=== PATIENT | female | born 1960 | race African-American/Black ===

== ENCOUNTER 2017-03-08 10:30 | Emergency (ER) | payer MEDICAID ==
[~2017-03-08] VITALS: Ht 160 cm; Wt 45.0 kg
[~2017-03-08 10:30] MED LIST: ATIVAN
[2017-03-08] MEDS ORDERED: MORPHINE SULFATE 4 MG/ML CPJ (NOT FOR IM USE) IV STA (10:53)
[2017-03-08] MEDS ORDERED: SODIUM CHLORIDE 0.9% 1,000 ML IV ONE (10:53)
[2017-03-08] MEDS ORDERED: ONDANSETRON HCL 4MG/2ML VIAL IV STA (10:53)
[2017-03-08 11:49] LABS: BASOPHILS % 0.7 % (0.0-2.0); EOSINOPHILS % 1.8 % (0.0-5.0); HEMATOCRIT. 44.4 % (36.0-48.0); HEMOGLOBIN. 14.8 g/dL (12.0-16.0); LYMPHOCYTES % 21.2 % (20.0-50.0); MEAN CORPUSCULAR HEMOGLOBIN 32.8 pg (28.0-32.0); MEAN PLATELET VOLUME 8.2 fl (7.4-10.4); MONOCYTES % 9.2 % (2.0-8.0); NEUTROPHILS % 67.1 % (40.0-76.0); PLATELET 275 x1000/uL (130-400); RED BLOOD CELL COUNT 4.53 mill/uL (4.2-5.4)
[2017-03-08 11:58] LABS: D-DIMER 0.55 mg/L FEU (<0.50); PROTHROMBIN TIME 10.3 sec (9.4-11.6)
[2017-03-08 11:59] LABS: CLARITY URINE CLEAR (CLEAR); COLOR URINE YELLOW (YELLOW); GLUCOSE URINE NEGATIVE (NEGATIVE); KETONES URINE NEGATIVE (NEGATIVE); LEUKOCYTE ESTERASE URINE NEGATIVE (NEGATIVE); NITRITE URINE NEGATIVE (NEGATIVE); OCCULT BLOOD URINE NEGATIVE (NEGATIVE); PROTEIN URINE NEGATIVE (NEGATIVE); SPECIFIC GRAVITY URINE 1.009 (1.005-1.030); UROBILINOGEN URINE 0.2 E.U./dL (0.2-1.0)
[2017-03-08] MEDS ORDERED: SODIUM CHLORIDE 0.9% 10ML VIAL ONE ×2 (12:02→12:03)
[2017-03-08] MEDS ORDERED: IOHEXOL-350 100 ML BOTTLE ONE ×2 (12:02→12:03)
[2017-03-08 12:06] LABS: CARBON DIOXIDE 29 mEq/L (21-32); CHLORIDE 101 mEq/L (98-107); TROPONIN I < 0.02 ng/mL (0.00-0.04)
[2017-03-08 12:12] LABS: *AMPHETAMINES SCREEN URINE NEGATIVE (NEGATIVE); *BARBITURATES SCREEN URINE NEGATIVE (NEGATIVE); *BENZODIAZEPINES SCREEN URINE NEGATIVE (NEGATIVE); *COCAINE SCREEN URINE PRESUMTIVE POSITIVE (NEGATIVE); CANNABINOID URINE SCREEN NEGATIVE (NEGATIVE); METHADONE URINE SCREEN NEGATIVE (NEGATIVE); OPIATES URINE SCREEN PRESUMTIVE POSITIVE (NEGATIVE); PHENCYCLIDINE URINE SCREEN NEGATIVE (NEGATIVE)
[2017-03-08] MEDS ORDERED: MORPHINE SULFATE 4 MG/ML CPJ (NOT FOR IM USE) IV ONE (18:00)
[2017-03-08] MEDS ORDERED: ACETAMINOPHEN 325MG TABLET PO ONE ×2 (18:00→19:45)
[2017-03-08 19:35] VITALS: BP 127/81
== END 2017-03-08 20:10 | disposition home or self-care (01) ==
LOC: ER 10:38 → CANBEDREQ 21:57
DX: G89.29 Other chronic pain (principal); F14.10 Cocaine abuse, uncomplicated; J44.9 Chronic obstructive pulmonary disease, unspecified; R07.81 Pleurodynia; Z88.6 Allergy status to analgesic agent
CPT/HCPCS: 36415; 71010; 71275; 72070; 80053; 80305; 81003; 83880; 84484; 85025; 85379; 85610; 87040; 87086; 93005; 96361; 96374; 96375; 96376; 99285; A4216; J2270; J2405; Q9967; Z7610; J7030

== ENCOUNTER 2021-07-25 15:39 | Emergency (ER) | payer MEDICAID ==
[~2021-07-25] VITALS: Ht 165.1 cm; Wt 60.0 kg
[2021-07-25] MEDS ORDERED: LIDOCAINE 5% PATCH TOP SCH (16:45)
[2021-07-25] MEDS ORDERED: ACETAMINOPHEN 325MG TABLET PO ONE (16:45)
[2021-07-25] MEDS ORDERED: ACETAMINOPHEN 325MG TABLET PO NR (16:45)
[2021-07-25] MEDS ORDERED: HYDROCODONE/ACETAMINOPHEN 5/325MG TABLET PO ONE (22:30)
[2021-07-26] MEDS ORDERED: ACET-2708 MT (00:19)
[2021-07-26] MEDS ORDERED: CYCL25PO15 MT (00:19)
[2021-07-26 01:19] LABS: CLARITY URINE TURBID (CLEAR); COLOR URINE DARK YELLOW (YELLOW); KETONES URINE TRACE (NEGATIVE); LEUKOCYTE ESTERASE URINE 3+ (NEGATIVE); NITRITE URINE NEGATIVE (NEGATIVE); OCCULT BLOOD URINE 1+ (NEGATIVE); PH URINE 5.5 (4.5-8.0); PROTEIN URINE 1+ (NEGATIVE); SPECIFIC GRAVITY URINE 1.023 (1.005-1.030)
[2021-07-26] MEDS ORDERED: CEPH500T MT (02:28)
[2021-07-26 04:00] VITALS: BP 150/87
== END 2021-07-26 04:30 | disposition home or self-care (01) ==
LOC: ER 15:39
DX: M54.9 Dorsalgia, unspecified (principal); I10 Essential (primary) hypertension; Z90.49 Acquired absence of other specified parts of digestive tract; Z87.891 Personal history of nicotine dependence; Z88.6 Allergy status to analgesic agent
CPT/HCPCS: 71045; 72100; 73502; 73552; 73562; 73590; 81003; 87086; 99285; Z7610

== ENCOUNTER 2021-11-25 13:27 | Emergency (ER) | payer MEDICAID, OTHER ==
[~2021-11-25] VITALS: Ht 165.1 cm; Wt 55.0 kg
[~2021-11-25 13:27] MED LIST changes: +ACET-2708 MT; +CEPH500T MT; +CYCL25PO15 MT
[2021-11-25] MEDS ORDERED: ONDANSETRON HCL 4MG/2ML INJ IV ONE (14:00)
[2021-11-25] MEDS ORDERED: FAMOTIDINE 20MG/2ML VIAL IV ONE (14:00)
[2021-11-25] MEDS ORDERED: MORPHINE SULFATE 4 MG/ML CPJ (NOT FOR IM USE) IV ONE (14:00)
[2021-11-25 14:53] LABS: BASOPHILS % 0.1 % (0.0-2.0); HEMATOCRIT. 44.8 % (36.0-48.0); HEMOGLOBIN. 15.1 g/dL (12.0-16.0); LYMPHOCYTES % 15.9 % (20.0-50.0); MEAN CORPUSCULAR HEMOGLOBIN 32.1 pg (28.0-32.0); MEAN CORPUSCULAR VOLUME 95.5 fL (81.0-99.0); MEAN PLATELET VOLUME 7.8 fl (7.4-10.4); MONOCYTES % 8.7 % (2.0-8.0); NEUTROPHILS % 75.3 % (40.0-76.0); PLATELET 319 x1000/uL (130-400); RED BLOOD CELL COUNT 4.69 mill/uL (4.2-5.4)
[2021-11-25 15:01] LABS: CHLORIDE 87 mEq/L (98-107)
[2021-11-25 15:03] LABS: PROTHROMBIN TIME 10.6 sec (9.6-11.0)
[2021-11-25] MEDS ORDERED: MORPHINE SULFATE 4 MG/ML CPJ (NOT FOR IM USE) IV NR (16:45)
[2021-11-25] MEDS ORDERED: FAMOTIDINE 20MG/2ML VIAL IV NR (16:45)
[2021-11-25] MEDS ORDERED: ONDANSETRON HCL 4MG/2ML INJ IV NR (16:45)
[2021-11-25] MEDS ORDERED: SODIUM CHLORIDE 0.9% 1,000 ML IV ONE (17:15)
[2021-11-25] MEDS ORDERED: FAMO40TA70 MT (18:21)
[2021-11-25] MEDS ORDERED: ONDA4TAB5 MT (18:29)
[2021-11-25 21:28] VITALS: BP 122/84
== END 2021-11-25 21:29 | disposition home or self-care (01) ==
LOC: ER 13:27
DX: F14.10 Cocaine abuse, uncomplicated (principal); K29.70 Gastritis, unspecified, without bleeding; I10 Essential (primary) hypertension; J45.909 Unspecified asthma, uncomplicated; Z88.6 Allergy status to analgesic agent; Z90.49 Acquired absence of other specified parts of digestive tract
CPT/HCPCS: 36415; 71045; 80053; 83690; 83880; 84484; 85025; 85610; 93005; 96374; 96375; 96376; 99285; J2270; J2405; J3490; J7030

== ENCOUNTER 2023-01-07 12:36 | Emergency (ER) | payer OTHER ==
[~2023-01-07] VITALS: Ht 162.6 cm; Wt 59.0 kg
[~2023-01-07 12:36] MED LIST changes: +FAMO40TA70 MT; +ONDA4TAB5 MT
[2023-01-07 13:55] LABS: CLARITY URINE CLEAR (CLEAR); COLOR URINE YELLOW (YELLOW); KETONES URINE NEGATIVE (NEGATIVE); LEUKOCYTE ESTERASE URINE NEGATIVE (NEGATIVE); NITRITE URINE NEGATIVE (NEGATIVE); OCCULT BLOOD URINE NEGATIVE (NEGATIVE); PROTEIN URINE 1+ (NEGATIVE); SPECIFIC GRAVITY URINE 1.013 (1.005-1.030); UROBILINOGEN URINE 0.2 E.U./dL (0.2-1.0)
[2023-01-07] MEDS ORDERED: METHYLPREDNISOLONE SOD SUCC 125 MG/2 ML VIAL IV ONE (14:00)
[2023-01-07 14:01] LABS: BASOPHILS % 1.3 % (0.0-2.0); EOSINOPHILS % 1.9 % (0.0-5.0); HEMATOCRIT. 44.7 % (36.0-48.0); LYMPHOCYTES % 27.6 % (20.0-50.0); MEAN CORPUSCULAR HEMOGLOBIN 32.8 pg (28.0-32.0); MEAN CORPUSCULAR VOLUME 97.6 fL (81.0-99.0); MEAN PLATELET VOLUME 8.5 fl (7.4-10.4); MONOCYTES % 9.7 % (2.0-8.0); NEUTROPHILS % 59.5 % (40.0-76.0); PLATELET 233 x1000/uL (130-400); RED BLOOD CELL COUNT 4.58 mill/uL (4.2-5.4); RED CELL DISTRIBUTION WIDTH 13.8 % (11.6-14.6)
[2023-01-07 14:13] LABS: PROTHROMBIN TIME 10.4 sec (9.6-11.0)
[2023-01-07 14:20] LABS: CHLORIDE 108 mEq/L (98-107)
[2023-01-07] MEDS ORDERED: ACETAMINOPHEN 325MG TABLET PO ONE (14:30)
[2023-01-07] MEDS ORDERED: NAPROXEN 250MG TABLET PO ONE (14:45)
[2023-01-07] MEDS ORDERED: P50 MT (15:59)
[2023-01-07] MEDS ORDERED: NAPR-681 MT (15:59)
[2023-01-07 17:00] VITALS: BP 154/99
== END 2023-01-07 18:00 | disposition home or self-care (01) ==
LOC: ER 12:36
DX: I47.1 Supraventricular tachycardia (principal); J44.1 Chronic obstructive pulmonary disease with (acute) exacerbation; I10 Essential (primary) hypertension; Z90.49 Acquired absence of other specified parts of digestive tract; F14.10 Cocaine abuse, uncomplicated; Z79.899 Other long term (current) drug therapy
CPT/HCPCS: 36415; 71045; 73560; 80053; 81003; 82962; 83880; 84484; 85025; 85610; 96374; 99284; J2930

== ENCOUNTER 2024-06-08 12:43 | Emergency (ER) | payer OTHER ==
[~2024-06-08] VITALS: Ht 162.6 cm; Wt 60.0 kg
[~2024-06-08 12:43] MED LIST changes: -ACET-2708 MT; +ALBU6.7H15 INH; -ATIVAN; -CEPH500T MT; -CYCL25PO15 MT; +DILT30TA37 PO; -FAMO40TA70 MT; +FLUT1BLS10 IH; +LEVO750T68 MT; +NICO-645 TP; -ONDA4TAB5 MT; +PRED10TA PO
[2024-06-08] MEDS: METHYLPREDNISOLONE SOD SUCC 125MG/2ML (ACT-O-VIAL) IV STA (13:09)
[2024-06-08 13:46] LABS: BASOPHILS % 0.4 % (0.0-2.0); EOSINOPHILS % 1.4 % (0.0-5.0); HEMATOCRIT. 48.2 % (36.0-48.0); HEMOGLOBIN. 15.6 g/dL (12.0-16.0); LYMPHOCYTES % 18.8 % (20.0-50.0); MEAN CORPUSCULAR HEMOGLOBIN 32.2 pg (28.0-32.0); MEAN CORPUSCULAR HGB CONC 32.4 g/dL (31.0-37.0); MEAN CORPUSCULAR VOLUME 99.2 fL (81.0-99.0); MEAN PLATELET VOLUME 8.2 fl (7.4-10.4); MONOCYTES % 10.4 % (2.0-8.0); PLATELET 312 x1000/uL (130-400); RED BLOOD CELL COUNT 4.86 mill/uL (4.2-5.4); RED CELL DISTRIBUTION WIDTH 13.2 % (11.6-14.6); WHITE BLOOD COUNT 11.8 x1000/uL (4.5-11.0)
[2024-06-08 13:50] VITALS: PULSE 78; RESP 24; O2SAT 98
[2024-06-08 13:52] LABS: CHLORIDE 95 mEq/L (98-107); POTASSIUM 4.1 mEq/L (3.5-5.1); SODIUM 132 mEq/L (136-145)
[2024-06-08 13:54] LABS: CALCIUM 9.3 mg/dL (8.7-10.4); CARBON DIOXIDE 32 mEq/L (21-32)
[2024-06-08] MEDS: ACETAMINOPHEN 325MG TABLET PO ONE (13:54)
[2024-06-08] MEDS: MORPHINE SULFATE 2 MG/ML INJ (NOT FOR IM USE) IV ONE ×2 (13:55→17:43)
[2024-06-08 13:57] LABS: PARTIAL THROMBOPLASTIN TIME 26.1 sec (23.4-31.0); PROTHROMBIN TIME 11.3 sec (9.6-11.0)
[2024-06-08 13:58] LABS: GLUCOSE 127 mg/dL (70-105)
[2024-06-08 13:59] LABS: UREA NITROGEN BLOOD 22 mg/dL (9-23)
[2024-06-08 14:01] LABS: TROPONIN I HIGH SENSITIVITY 22 ng/L (3.0-34)
[2024-06-08] MEDS ORDERED: ASPIRIN 325MG EC TABLET PO ONE (15:00)
[2024-06-08] MEDS: ONDANSETRON HCL 4MG/2ML INJ IV ONE (15:12)
[2024-06-08] MEDS: IPRATROPIUM/ALBUTEROL 0.5-3(2.5)MG/3ML NEB HHN ONE (15:15)
[2024-06-08] MEDS: ALBUTEROL (0.083%) 2.5MG/3ML NEB HHN ONE ×2 (15:15→15:53)
[2024-06-08] MEDS: METOCLOPRAMIDE HCL 10MG/2ML VIAL IV ONE (17:43)
[2024-06-08 17:49] VITALS: BP 139/79; PULSE 81; RESP 20; TEMP 37.00296; O2SAT 100
== END 2024-06-08 18:04 | disposition short-term general hospital (02) ==
LOC: ER 13:01 → CANBEDREQ 15:40 → ER 18:04
DX: J44.1 Chronic obstructive pulmonary disease with (acute) exacerbation (principal); I10 Essential (primary) hypertension; Z90.49 Acquired absence of other specified parts of digestive tract; Z96.659 Presence of unspecified artificial knee joint; Z79.899 Other long term (current) drug therapy; Z88.0 Allergy status to penicillin; Z88.6 Allergy status to analgesic agent
CPT/HCPCS: 80048; 83880; 85025; 85610; 85730; 84484; 36415; 71045; 94640; 93005; 99291; 96374; 96375; 96376; J2919; J2765; J2405; J2270; Z7610 ×7; A4663; A4606